=== PATIENT | female | born 1960 | race Hispanic/Latino ===

== ENCOUNTER 2017-10-01 15:46 | Emergency (ER) | payer SELFPAY ==
[2017-10-01] MEDS ORDERED: HYDROXYZINE HCL 25 MG TABLET ONE (16:29)
[2017-10-01] MEDS ORDERED: DEXAMETHASONE SOD PHOSPHATE 4 MG/ML 1ML VIAL ONE (16:29)
[2017-10-01] MEDS ORDERED: METHYLPREDNISOLONE SOD SUCC 125MG/2ML VIAL ONE (16:30)
== END 2017-10-01 20:01 | disposition home or self-care (01) ==
LOC: EDH 15:46
DX: T78.49XA Other allergy, initial encounter (principal); Z88.6 Allergy status to analgesic agent; Z88.0 Allergy status to penicillin; Z85.3 Personal history of malignant neoplasm of breast; X58.XXXA Exposure to other specified factors, initial encounter
CPT/HCPCS: 96372 ×2; 99284; J1100; J2930